=== PATIENT | female | born 1950 | race Caucasian/White ===

== ENCOUNTER → 2016-07-19 | Outpatient (CLI) | payer BC | LOC: MC.RAD 15:20 | DX: Z12.31 Encounter for screening mammogram for malignant neoplasm of breast (principal) ==

== ENCOUNTER → 2016-07-26 | Outpatient (CLI) | payer BC | LOC: COL.RAD 13:30 | DX: N95.8 Other specified menopausal and perimenopausal disorders (principal); N94.19 Other specified dyspareunia; N31.2 Flaccid neuropathic bladder, not elsewhere classified ==

== ENCOUNTER → 2017-10-13 | Outpatient (CLI) | payer MEDICARE, BC | LOC: MC.RAD 09-15 13:20 | DX: Z12.31 Encounter for screening mammogram for malignant neoplasm of breast (principal) ==

== ENCOUNTER → 2018-03-24 | Outpatient (CLI) | payer MEDICARE, BC | LOC: COL.RAD 09:40 | DX: E55.9 Vitamin D deficiency, unspecified (principal); E03.9 Hypothyroidism, unspecified; N94.10 Unspecified dyspareunia; Z79.890 Hormone replacement therapy ==

== ENCOUNTER → 2018-11-12 | Outpatient (CLI) | payer MEDICARE, BC | LOC: MC.RAD 10-14 14:15 | DX: Z12.31 Encounter for screening mammogram for malignant neoplasm of breast (principal); E55.9 Vitamin D deficiency, unspecified; E03.9 Hypothyroidism, unspecified; N94.10 Unspecified dyspareunia; Z79.890 Hormone replacement therapy ==